=== PATIENT | male | born 1960 | race Caucasian/White ===

== ENCOUNTER 2016-09-23 10:11 | Emergency (ER) | payer OTHER ==
[~2016-09-23] VITALS: Ht 172.7 cm; Wt 80.7 kg
[~2016-09-23 10:11] MED LIST: PRILOSEC OTC20 MG PO
--- NOTE | 2016-09-23 10:52 | ED NECK/BACK PAIN COMPLAINT ---
History of Present Illness General Chief Complaint: Low Back Pain/Injury Stated Complaint: BACK PAIN Source: patient Exam Limitations: no limitations Vital Signs & Intake/Output Vital Signs & Intake/Output Vital Signs Date Time Temp Pulse Resp B/P B/P Pulse O2 O2 Flow FiO2 Mean Ox Delivery Rate 09/23 1414 98 Room Air 09/23 1414 92 20 155/65 98 Room Air 09/23 1232 98.1 100 20 127/77 96 Room Air 09/23 1018 97.5 105 20 166/98 98 Room Air Allergies Coded Allergies: No Known Allergies (09/23/16) Reconcile Medications Diazepam (Valium) 5 MG TABLET 1 TAB PO BIDP PRN pain/muscle spasm Methylprednisolone. (Medrol) 4 MG TAB.DS.PK 1 DP PO AD back pain 6 on day 1 then reduce by one tablet daily until gone Omeprazole (Prilosec Otc) 20 MG TCP 1 TAB PO QDAY GASTRITIS/REFLUX SYMPTOMS Oxycodone HCl/Acetaminophen (Percocet 5-325 MG Tablet) 5 MG-325 MG TABLET 1-2 TAB PO TID PRN pain Triage Note: PT TO ED C/O LEFT LOWER BACK PAIN SINCE THURSDAY. STATES HE WAS "PULLING A SPARE TIRE OUT OF A CAR". TOOK MOTRIN WITH NO RELIEF. PAIN NOW RADIATES DOWN LEFT LEG ALONG WITH NUMBNESS. Triage Nurses Notes Reviewed? yes Onset: Abrupt Duration: day(s): (4), constant, continues in ED, getting worse Timing: single episode today Quality/Severity: severe, sharpness Location: lumbar spine, paraspinous muscles Radiation: buttocks Context: lifting Loss of Consciousness: no loss of consciousness Modifying Factors: movement Associated Symptoms: lower back pain, muscle spasm, numbness in legs/feet HPI: 56-year-old male with a past medical history of hypertension hyperlipidemia plating of pain in his lower back since Thursday. Patient reports that he was taking spared tire out of the back of his car when he suddenly felt pain in his lower back on the left side. Pain is worse with any type of movement or positioning patient states he cannot get comfortable in any position. Patient reports the pain is located mostly in the left side of his lower back and radiates into his left buttock. He also reports numbness in the area of his left back left medial thigh and left foot. He rates pain as a 10 out of 10 with no alleviating factors. He tried taking ibuprofen at home without any significant improvement in his last dose was earlier today. No Previous history of back surgeries or back injuries. He denies any abdominal pain, fever, IV drug use, urinary symptoms, bowel or bladder dysfunction, saddle paresthesias, chest pain, shortness of breath, neck pain or any other associated symptoms. (GERARDO DAHL PA-C) Past History Travel History Traveled to [place] past 21 day No Medical History Any Pertinent Medical History? see below for history Cardiovascular: hypertension, hyperlipidemia Psychiatric: anxiety, depression Influenza Vaccine: 01/29/10 Surgical History Surgical History: N Psychosocial History Who do you live with Patient/Self Services at Home None What is your primary language Greenlandic Tobacco Use: Never used ETOH Use: denies use Illicit Drug Use: denies illicit drug use Family History Hx Contributory? No (GERARDO DAHL PA-C) Review of Systems Review of Systems Constitutional: Reports: no symptoms. Eyes: Reports: no symptoms. Ears, Nose, Throat, Mouth: Reports: no symptoms. Respiratory: Reports: no symptoms. Cardiovascular: Reports: no symptoms. Gastrointestinal/Abdominal: Reports: no symptoms. Musculoskeletal: Reports: see HPI, back pain, muscle pain, muscle stiffness. Skin: Reports: no symptoms. Neurological/Psychological: Reports: see HPI, numbness, paresthesia. All Other Systems: Reviewed and Negative (GERARDO DAHL PA-C) Physical Exam Physical Exam General Appearance: well developed/nourished, alert, awake, anxious, moderate distress Head: atraumatic, normal appearance Eyes: Bilateral: normal appearance, PERRL, EOMI. Ears, Nose, Throat, Mouth: hearing grossly normal, moist mucous membrane, Tympanic normal Neck: normal inspection, supple, full range of motion, normal alignment, no midline tenderness Respiratory: normal breath sounds, chest non-tender, no respiratory distress, lungs clear Cardiovascular: regular rate/rhythm, normal peripheral pulses Peripheral Pulses: 2+ tibialis posterior (R), 2+ tibialis posterior (L), 2+ dorsalis pedis (R), 2+ dorsalis pedis (L) Gastrointestinal: normal bowel sounds, soft, non-tender, no organomegaly Genital/Rectal: normal rectal exam, normal rectal tone Back: normal inspection, decreased range of motion, muscle spasm, no vertebral tenderness, patient reports pain with palpation of left side lumbar paraspinous muscles straight leg raise is positive on the left. no midline tenderness. No step-offs or deformities. Extremities: non-tender, normal range of motion, straight leg raised Straight Leg Raising: Left: Pain at ____ degrees (30). Sensory: Medial Le: L4L. 2: L4R. Top of Foot: 1: L5L. 2: L5R. Sole of Foot: 1: ELIAZAR. 2: SIR. Motor: Deficit L4 Right: No Deficit L4 Left: No Deficit L5 Right: No Deficit L5 Left: No Deficit S1 Right: No Deficit S1 Right: No DTR: Deficit L4 Left: No Deficit L4 Right: No Deficit S1 Left: No Deficit S1 Right: No Neurologic/Psych: no motor/sensory deficits, awake, alert, oriented x 3, normal gait, normal mood/affect, ore sampler II-XII nml as tested, there is sensory deficit in the region of dermatome L3 L4 in the left lower extremity. No motor deficits. Patellar DTRs 2+ bilaterally. No saddle paresthesias Skin: intact, normal color, warm/dry (BLACK PA-C,GERARDO) Progress Differential Diagnosis: AAA, cauda equina syn, herniated disc, myofascial strain , sciatica, spinal cord inj, T/L spine injury, ddd, lumbar stenosis Plan of Care: Current Medications Sig/Brooks Start time Last Medication Dose Stop Time Status Admin Diazepam 5 MG ONCE ONE 09/23 1345 UNVr (Valium) 09/23 1346 Hydromorphone HCl 1 MG ONCE ONE 09/23 1330 UNVr 09/23 (Dilaudid) 09/23 1331 1329 11:05 AM: Patient appears to be in significant distress due to his pain. No saddle paresthesias. Good rectal tone no perianal numbness. No bowel incontinence or urinary retention. He is moving all extremities. He'll receive 5 mg of Valium and 4 mg of morphine IV. He'll then be reassessed. After he is more comfortable he'll receive an x-ray of his lumbar spine. 11:45 AM patient is still in significant discomfort after receiving 5 of Valium and 4 of morphine IV. We will try 30 of Toradol and 1 of Dilaudid IV. 12:30 PM: Patient is feeling better after Dilaudid and Toradol IV. Waiting for x-ray results. We'll also add 125mg IV Solu-Medrol. 1:20 PM: X-ray of the lumbar spine as showing grade 1 borderline grade 2 anterior listhesis of L4 on L5. Neurosurgery at [facility] was paged to determine if this patient needs a MRI today or if it can wait. Patient states that the pain has started to come back. gave another 1 mg of IV Dilaudid and another 5 of IV Valium. 1:30 PM: Spoke with Dr. Shankar Monroy from [facility] neurosurgery. He feels in the absence of cauda equina syndrome the patient should be able to be discharged home with pain control and oral steroids. Discussed results and findings neurosurgery consult with patient. Patient is concerned that if he goes home he 'll be in severe pain. he'll continue to be monitored. If he is able to walk and his pain is adequately controlled and will be discharged home. from neurosurgery will see him as an outpatient this week. 2 PM: pt reports he's feeling significantly better. He has been able to get up and walk around the room without difficulty. 3 PM: Patient is still feeling better. He is able to walk and ambulate. He feels as though he is ready to go home. There has still been no signs of cauda equina including perianal numbness, bowel or bladder dysfunction, fevers, or any motor deficits. Patient will be discharged home with Percocet and Valium and Medrol Dosepak. Will follow-up with Dr. Shankar Monroy neurosurgeon at [facility] tomorrow. Reviewed all results of today's visit with patient. He is nontoxic- appearing agrees the plan. Discussed signs of cauda equina syndrome with patient in detail and told to return to emergency department immediately if any occur. (HESHAM CARTER,GERARDO) Diagnostic Imaging: Viewed by Me: Radiology Read. (HESHAM CARTER,GERARDO) Departure Departure Disposition: HOME OR SELF CARE Condition: Stable Clinical Impression Primary Impression: Anterolisthesis Referrals: TATY LOAIZA,RAMIN Portillo (PCP/Family) Additional Instructions: Rest, avoid heavy lifting, bending, or excessive physical activity. Take Medrol Dosepak as directed for the full course. Valium, ibuprofen and Percocet as needed for pain. These can cause drowsiness do not drive while taking. Make a follow-up appointment with Dr. Shankar Monroy who is a neurosurgeon at [facility] this week. His phone number is [phone]. Make this point in as soon as possible. Monitor symptoms or signs of cauda equina syndrome. Symptoms to look out for including perianal numbness, numbness in her groin area, bowel or bladder dysfunction, weakness on one side of the body, worsening pain or any other concerns. Return to the emergency department immediately if any of these occur. Please go over all results of today's visit with your primary care doctor. Contact your primary care doctor to let them know you were here in the emergency room. There may be nonspecific findings which may not be related to your visit today here in the emergency room but may require further evaluation and chronic monitoring by your primary care doctor. If you had a laceration today the chance of foreign body always remains. You should follow-up with your primary care doctor for recheck in 3-5 days for a wound check. If you had an x-ray done there is a chance that a fracture could have been missed on initial read and you should follow-up with your primary care doctor for repeat x-rays if symptoms persist. If your blood pressure was elevated here in the emergency room please have rechecked by her primary care doctor within the next 48 hours by your primary care doctor. If you were prescribed a narcotic here in the emergency room or any type of controlled substances you're not allowed to drive while taking this medication or operate any type of heavy machinery. Narcotics can make you feel lightheaded dizziness nausea and can cause constipation. You may need to fish bait picker a stool softener. Thank you for choosing [facility] emergency room. Please return to the emergency room immediately if you have any other concerns worsening of symptoms. Departure Forms: Customer Survey General Discharge Information Prescriptions: Current Visit Scripts Methylprednisolone. (Medrol) 1 DP PO AD #1 DP 6 on day 1 then reduce by one tablet daily until gone Oxycodone HCl/Acetaminophen (Percocet 5-325 MG Tablet) 1-2 TAB PO TID PRN pain #10 TAB Diazepam (Valium) 1 TAB PO BIDP PRN pain/muscle spasm #10 TAB (GERARDO DAHL PA-C) PA/OIL CHANGE TECHNICIAN Co-Sign Statement Statement: ED Attending supervision documentation- [] I saw and evaluated the patient. I have also reviewed all the pertinent lab results and diagnostic results. I agree with the findings and the plan of care as documented in the PA's/OIL CHANGE TECHNICIAN's documentation. [X] I have reviewed the ED Record and agree with the PA's/OIL CHANGE TECHNICIAN's documentation. [] Additions or exceptions (if any) to the PAs/OIL CHANGE TECHNICIAN's note and plan are summarized below: [] (BOZENA LOAIZA,FEDERICO Portillo)
--- NOTE | 2016-09-23 13:10 | RADIOLOGY REPORT ---
EXAMINATION: XR LUMBOSACRAL SPINE CLINICAL INFORMATION: No trauma. Fracture. Low back pain radiating down left leg after heavy lifting COMPARISON: None TECHNIQUE: AP, lateral, and cone-down lateral views of the lumbar sacral spine. FINDINGS: 5 nonrib-bearing lumbar type vertebral bodies are seen. There are screws from hernia repair seen in the central abdomen on the AP view. Nonobstructive abdominal bowel gas pattern. Vertebral body heights are maintained without evidence of compression fracture. There is grade 1, bordering on grade 2 anterolisthesis of L4 on L5. There is loss of disc height with endplate sclerosis and osteophytosis at L4-L5. There are likely chronic bilateral L4 pars defects. Lower lumbar facet arthropathy is seen. IMPRESSION: No compression fracture. Grade 1, bordering on grade 2 anterolisthesis of L4 on L5 with likely chronic L4 pars defects and degenerative disc disease at L4-L5.
[2016-09-23 14:14] VITALS: BP 155/65
[2016-09-23] MEDS ORDERED: PERCOCET 5-3251 EACH PO (15:03)
[2016-09-23] MEDS ORDERED: MEDROL4 M2 PO (15:03)
[2016-09-23] MEDS ORDERED: VALIUM5 M2 PO (15:03)
== END 2016-09-23 15:17 ==
LOC: ERH 10:11
DX: M54.5 Low back pain (principal)
CPT/HCPCS: 72100; 96374; 96375; 96376; J1885; J2930; J3360